=== PATIENT | male | born 1945 | race Caucasian/White ===

== ENCOUNTER 2018-08-24 05:24 | Inpatient (IN) | payer MEDICARE | END 2018-08-26 10:30 | disposition home or self-care (01) | LOC: PAS IN 05:24 → ORTHO 4S 11:40 | PROC: 0SRC0J9 Replacement of Right Knee Joint with Synthetic Substitute, Cemented, Open Approach (ICD-10-PCS; principal; 2018-08-24 07:23) | DX: M17.11 Unilateral primary osteoarthritis, right knee (principal); D62 Acute posthemorrhagic anemia ==

== ENCOUNTER 2019-04-19 05:20 | Inpatient (IN) | payer MEDICARE ==
[2019-04-06 15:18] LABS: BASOPHILS # (AUTO) 0.1 X10'3 (0-0.2); BASOPHILS % (AUTO) 1.1 % (0-1); EOSINOPHILS # (AUTO) 0.2 X10'3 (0-0.9); EOSINOPHILS % (AUTO) 3.3 % (0-6); LYMPHOCYTES # (AUTO) 1.7 X10'3 (1.1-4.8); LYMPHOCYTES % (AUTO) 25.9 % (21-51); MEAN CORPUSCULAR HEMOGLOBIN 29.2 PG (27.0-31.0); MEAN CORPUSCULAR HGB CONC 33.9 g/dL (33.0-36.5); MEAN CORPUSCULAR VOLUME 86.4 FL (78-98); MEAN PLATELET VOLUME 8.4 FL (7.4-10.4); MONOCYTES # (AUTO) 0.7 X10'3 (0-0.9); MONOCYTES % (AUTO) 10.3 % (2-12); NEUTROPHILS # (AUTO) 3.9 X10'3 (1.8-7.7); NEUTROPHILS % (AUTO) 59.4 % (42-75); PRE OP HEMATOCRIT 47.6 % (42.0-52.0); PRE OP HEMOGLOBIN 16.1 g/dL (14.0-17.9); PRE OP PLATELET COUNT 271 X10'3 (140-440); RED BLOOD COUNT 5.51 X10'6 (4.70-6.10); RED CELL DISTRIBUTION WIDTH 14.8 % (11.5-14.5)
[2019-04-06 15:30] LABS: ALBUMIN 3.5 G/DL (3.4-5.0); ALBUMIN/GLOBULIN RATIO 0.9 (1.1-1.5); ALKALINE PHOSPHATASE 58 IU/L (46-116); BLOOD UREA NITROGEN 13 MG/DL (7-18); BUN/CREATININE RATIO 12.3 (5.4-32.0); CALCIUM 8.9 MG/DL (8.5-10.1); CHLORIDE 107 MMOL/L (99-107); CREATININE 1.06 MG/DL (0.60-1.10); PRE OP ALT 26 U/L (30-65); PRE OP ANION GAP 5 (8-16); PRE OP AST 16 U/L (10-37); PRE OP BILIRUB, TOTAL 0.4 MG/DL (0.0-1.0); PRE OP GLUCOSE 100 MG/DL (70-104); PRE OP POTASSIUM 4.1 MMOL/L (3.4-5.1); PRE OP SODIUM 142 MMOL/L (135-145); TOTAL CARBON DIOXIDE 29.6 MMOL/L (24-32); TOTAL PROTEIN 7.6 G/DL (6.4-8.2); eGFR 69 ML/MIN
[2019-04-19] VITALS (19 sets, daily range): BP systolic 94–136; BP diastolic 54–85
[~2019-04-19] VITALS: Ht 177.8 cm; Wt 101.0 kg
[~2019-04-19 05:20] MED LIST: ASCO500C15 PO; CALC500T11 PO; CHOL10002 PO; FISH12002 PO; LACT1CAP65 PO; PRAS50CA2 PO; SILYMARIN PO; UBID100C16 PO; VITAMIN B PO; [UNRECOGNIZED DRUG - OTHER]; [UNRECOGNIZED DRUG - OTHER] PO; [UNRECOGNIZED DRUG - OTHER] PO; ringers solution, lacted 1,000 ML IV SCH
[2019-04-19] MEDS ORDERED: acetaminophen 325mg tablet PO ONE (05:30)
[2019-04-19] MEDS ORDERED: gabapentin 300mg capsule PO ONE (05:30)
[2019-04-19] MEDS ORDERED: oxyCODONE SR 10mg (sust. release) tab PO ONE (05:30)
[2019-04-19] MEDS ORDERED: famotidine 20mg tablet PO ONE (05:30)
[2019-04-19] MEDS ORDERED: vancomycin inj 1,500 MG in normal saline 300ml IV soln IV ONE (05:30)
[2019-04-19] MEDS ORDERED: metoclopramide 5 mg/ml inj IV ONE (05:30)
[2019-04-19] MEDS ORDERED: tranexamic acid inj. 1,000 MG in normal saline 100 ML IV ONE (05:30)
[2019-04-19] MEDS ORDERED: cefazolin/dext.iso 2gm/50ml 50 ML IV ONE (06:05)
[2019-04-19] MEDS ORDERED: LIDOcaine 1% (10mg/ml) 2ml vial ONE (06:10)
[2019-04-19] MEDS ORDERED: epiNEPHrine 1 mg/ml inj ONE (06:47)
[2019-04-19] MEDS ORDERED: mineral oil 10ml sterile, topical TP ONE (06:47)
[2019-04-19] MEDS ORDERED: ketorolac trometh. 30mg/ml inj. ONE (06:47)
[2019-04-19] MEDS ORDERED: vancomycin 1,000mg inj ONE (06:48)
[2019-04-19] MEDS ORDERED: ROPIVAcaine 0.5% (5mg/ml) 30ml vial ONE ×2 (06:48→10:20)
[2019-04-19] MEDS ORDERED: ceFAZolin 1000mg inj ONE (06:48)
[2019-04-19] MEDS ORDERED: morphine 10mg/ml inj. ONE (06:48)
[2019-04-19] MEDS ORDERED: tetracaine 1% (10mg/ml) pres. free inj. ONE (07:13)
[2019-04-19] MEDS ORDERED: fentaNYL/PF 50MCG/1 ML 2ML syringe ONE (07:16)
[2019-04-19] MEDS ORDERED: MIDAZolam 5mg/5ml vial ONE (07:17)
[2019-04-19] MEDS ORDERED: ringers solution, lacted 1,000 ML IV SCH (09:16)
[2019-04-19] MEDS ORDERED: ROPIVAcaine 0.2%/PF PAIN PUMP 550 ML IJ SCH (09:16)
[2019-04-19] MEDS ORDERED: proCHLORperazine 10 MG/2 ml inj IV PRN (09:20)
[2019-04-19] MEDS ORDERED: ondansetron/PF 4mg/2ml inj IV PRN ×2 (09:20→10:30)
[2019-04-19] MEDS ORDERED: morphine 4 MG/ML inj SYRINge IV PRN ×2 (09:20)
[2019-04-19] MEDS ORDERED: meperidine/PF 25mg/ml syringe IV PRN ×3 (09:20)
[2019-04-19] MEDS ORDERED: ePHEDrine 50MG/ML INJ. ONE (09:30)
[2019-04-19] MEDS ORDERED: propofol inj 20 ML IV ONE (09:30)
[2019-04-19] MEDS ORDERED: magnesium hydroxide 30ml (MOM) UD suspension PO PRN (10:30)
[2019-04-19] MEDS ORDERED: acetaminophen 325mg tablet PO PRN (10:30)
[2019-04-19] MEDS ORDERED: HYDROmorphone inj. 0.5 MG/0.5 ML DISP.SYRIN IV PRN (10:30)
[2019-04-19] MEDS ORDERED: diphenhydrAMINE 25mg capsule PO PRN ×2 (10:30)
[2019-04-19] MEDS ORDERED: bisacodyl 10mg suppository rectal RC PRN (10:30)
[2019-04-19] MEDS ORDERED: oxyCODONE IR 5mg (immed. release) tablet PO PRN (10:30)
[2019-04-19] MEDS ORDERED: HYDROmorphone 1 mg/ml syringe IV PRN (10:30)
--- NOTE | 2019-04-19 10:45 | NUR ---
Received from OR via BED , accompanied by Anesthesiologist DR MORA and report given by Anesthesiolgist. PATIENT WAKING UP, DENIES PAIN, V/S WNL, NEUROVASCULAR CHECKS INTACT, 18G PIV LUE , DRESSING TO LEFT KNEE CDI W/ COLD POWDER PACK AND W/ SCD ON. F/C DRAINING CLEAR YELLOW URINE. SENSATION T-11. ON QUE BALL TO LEFT KNEE
--- NOTE | 2019-04-19 11:45 | NUR ---
PATIENT A&OX4, DENIES PAIN, V/S WNL, NEUROVASCULAR CHECKS INTACT, 18G PIV LUE , FLORENCIO DRESSING TO LEFT KNEE CDI W/ COLD POWDER PACK AND W/ SCD ON AND ON QUE BALL AT 4ML/HR. F/C DRAINING CLEAR YELLOW URINE. SENSATION T-11. PATIENT TAKEN TO 4010B WITH ALL BELONGINGS AND HOOKED UP TO MONITORS IN ROOM AND REPORT GIVEN TO [employer] COMMUNICATIONS MANAGER WHO HAS TAKEN OVER PATIENT CARE.
[2019-04-19] MEDS ORDERED: NORMAL SALINE IV ONE (14:00)
[2019-04-19] MEDS ORDERED: TRANEXAMIC ACID IV ONE (14:00)
[2019-04-19] MEDS ORDERED: tranexamic acid inj. 1,000 MG in normal saline 100ml IV soln 100 ML IV ONE (14:30)
[2019-04-19] MEDS: potassium cl 20mEq in 1/2 NS 1,000 ML IV SCH ×2 (14:58→18:26)
[2019-04-19] MEDS: gabapentin 300mg capsule PO SCH ×2 (15:00→20:56)
[2019-04-19] MEDS: acetaminophen 325mg tablet PO SCH ×2 (15:06→20:55)
[2019-04-19] MEDS: ceFAZolin 1GM/D5W- ADD-VANTAGE 50 ML IV SCH (16:20)
--- NOTE | 2019-04-19 18:23 | NUR ---
Problems reprioritized. Patient report given, questions answered & plan of care reviewed with Ruapli RAMIREZ.
[2019-04-19] MEDS ORDERED: vancomycin/NS 1 GM ADD-VANTAGE 250 ML IV SCH (20:00)
[2019-04-19] MEDS: sennosides 8.6mg tablet PO SCH (20:57)
[2019-04-20] VITALS (8 sets, daily range): BP systolic 110–147; BP diastolic 71–78
[2019-04-20] MEDS: ceFAZolin 1GM/D5W- ADD-VANTAGE 50 ML IV SCH (00:56)
[2019-04-20] MEDS: potassium cl 20mEq in 1/2 NS 1,000 ML IV SCH (01:00)
[2019-04-20] MEDS: acetaminophen 325mg tablet PO SCH ×5 (02:00→20:52)
[2019-04-20 05:55] LABS: BASOPHILS # (AUTO) 0.1 X10'3 (0-0.2); BASOPHILS % (AUTO) 0.6 % (0-1); EOSINOPHILS # (AUTO) 0.2 X10'3 (0-0.9); EOSINOPHILS % (AUTO) 1.8 % (0-6); HEMATOCRIT 43.5 % (42.0-52.0); HEMOGLOBIN 14.8 g/dl (14.0-17.9); LYMPHOCYTES # (AUTO) 0.9 X10'3 (1.1-4.8); LYMPHOCYTES % (AUTO) 10.5 % (21-51); MEAN CORPUSCULAR HEMOGLOBIN 29.3 PG (27.0-31.0); MEAN CORPUSCULAR VOLUME 86.2 FL (78-98); MEAN PLATELET VOLUME 8.4 FL (7.4-10.4); MONOCYTES # (AUTO) 0.9 X10'3 (0-0.9); NEUTROPHILS # (AUTO) 6.5 X10'3 (1.8-7.7); NEUTROPHILS % (AUTO) 77.1 % (42-75); PLATELET COUNT 221 X10'3 (140-440); RED BLOOD COUNT 5.04 X10'6 (4.70-6.10); RED CELL DISTRIBUTION WIDTH 14.7 % (11.5-14.5); WHITE BLOOD COUNT 8.5 X10'3 (4.5-11.0)
[2019-04-20 05:56] LABS: ANION GAP 7 (8-16); CHLORIDE 108 MMOL/L (99-107); POTASSIUM 4.6 MMOL/L (3.5-5.1); SODIUM 143 MMOL/L (135-145); TOTAL CARBON DIOXIDE 28.5 MMOL/L (24-32)
[2019-04-20] MEDS ORDERED: ENOX30DI4 SQ (06:38)
[2019-04-20] MEDS ORDERED: SILYMARIN PO SCH (08:00)
[2019-04-20] MEDS ORDERED: INTLU PO SCH (08:00)
[2019-04-20] MEDS ORDERED: non-formulary drug (Ubidecarenone (Coq-10) 100 MG) PO SCH (08:00)
[2019-04-20] MEDS ORDERED: PRASTERONE PO SCH (08:00)
[2019-04-20] MEDS ORDERED: [UNRECOGNIZED DRUG - OTHER] PO SCH (08:00)
[2019-04-20] MEDS: enoxaparin 30mg/0.3ml syringe SQ SCH (08:32)
[2019-04-20] MEDS: lactobacillus rhamnosus 10,000 MMU CELLS/CAPSULE PO SCH (08:32)
[2019-04-20] MEDS: vitamin D (cholecalciferol) 1,000 unit tablet PO SCH (08:33)
[2019-04-20] MEDS: gabapentin 300mg capsule PO SCH ×3 (08:33→20:52)
[2019-04-20] MEDS: vitamin B comp w/Vit. C tab 1 TAB TABLET PO SCH (08:34)
[2019-04-20] MEDS: calcium carbonate 500mg tablet PO SCH (08:34)
--- NOTE | 2019-04-20 09:30 | NUR ---
Pt report given to Shelly RAMIREZ
--- NOTE | 2019-04-20 09:43 | NUR ---
Patient in room [facility]TH[facility] 4010. I have received report from Scot Dave and had the opportunity to ask questions and assume patient care.
--- NOTE | 2019-04-20 12:37 | NUR ---
Joint Replacement Consult: Pt/SO seen by AMANDA for written/verbal diet ed w/ RD contact information provided. Pt PO 100% regular diet meeting needs and declines additional proteins at this time. LBM 04/18 on senna. Will continue to monitor. Addendum: 04/20/19 at [address] Amended: Links added.
--- NOTE | 2019-04-20 17:49 | NUR ---
Student documentation: I have reviewed and agree with all interventions, assessments performed and documented by NICOL Napier COS.
[2019-04-20] MEDS: oxyCODONE IR 5mg (immed. release) tablet PO PRN (18:44)
[2019-04-20] MEDS: celeCOXIB 100mg capsule PO SCH (20:51)
[2019-04-20] MEDS: sennosides 8.6mg tablet PO SCH (20:52)
[2019-04-21] MEDS: acetaminophen 325mg tablet PO SCH ×2 (02:00→07:47)
[2019-04-21 06:00] VITALS: BP 129/91
[2019-04-21] MEDS: oxyCODONE IR 5mg (immed. release) tablet PO PRN (06:53)
[2019-04-21 07:15] LABS: BASOPHILS % (AUTO) 0.4 % (0-1); EOSINOPHILS # (AUTO) 0.2 X10'3 (0-0.9); EOSINOPHILS % (AUTO) 1.8 % (0-6); HEMATOCRIT 42.6 % (42.0-52.0); HEMOGLOBIN 14.4 g/dl (14.0-17.9); LYMPHOCYTES # (AUTO) 1.2 X10'3 (1.1-4.8); LYMPHOCYTES % (AUTO) 12.6 % (21-51); MEAN CORPUSCULAR HEMOGLOBIN 29.3 PG (27.0-31.0); MEAN CORPUSCULAR HGB CONC 33.7 g/dL (33.0-36.5); MEAN PLATELET VOLUME 8.5 FL (7.4-10.4); MONOCYTES # (AUTO) 1.3 X10'3 (0-0.9); MONOCYTES % (AUTO) 13.9 % (2-12); NEUTROPHILS # (AUTO) 6.9 X10'3 (1.8-7.7); NEUTROPHILS % (AUTO) 71.3 % (42-75); PLATELET COUNT 214 X10'3 (140-440); RED CELL DISTRIBUTION WIDTH 15.1 % (11.5-14.5); WHITE BLOOD COUNT 9.7 X10'3 (4.5-11.0)
[2019-04-21] MEDS: vitamin D (cholecalciferol) 1,000 unit tablet PO SCH (07:45)
[2019-04-21] MEDS: calcium carbonate 500mg tablet PO SCH (07:45)
[2019-04-21] MEDS: gabapentin 300mg capsule PO SCH (07:46)
[2019-04-21] MEDS: vitamin B comp w/Vit. C tab 1 TAB TABLET PO SCH (07:46)
[2019-04-21] MEDS: celeCOXIB 100mg capsule PO SCH (07:46)
[2019-04-21] MEDS: enoxaparin 30mg/0.3ml syringe SQ SCH (07:46)
[2019-04-21] MEDS: lactobacillus rhamnosus 10,000 MMU CELLS/CAPSULE PO SCH (07:46)
[2019-04-21 10:00] VITALS: BP 103/71
[2019-04-21] MEDS ORDERED: acetaminophen 325mg tablet PO PRN (10:30)
--- NOTE | 2019-04-21 16:52 | NUR ---
Student Medication Administration: For this medication-pass time frame, all medication were reviewed, dispensed, administered and documented per hospital policy by Jolie RAMIREZ . Student documentation: I have reviewed and agree with all interventions, assessments performed and documented by Jolie RAMIREZ.
== END 2019-04-21 10:49 | disposition home health service (06) | DRG 470 ==
LOC: PAS IN 05:20 → EDSTATUS 07:30 → ORTHO 4S 11:45
PROVIDERS: ADMIT Orthopaedic Surgery; ATTEND Orthopaedic Surgery
PROC: 3E0T3BZ Introduction of Anesthetic Agent into Peripheral Nerves and Plexi, Percutaneous Approach (ICD-10-PCS; 2019-04-19)
PROC: 8E0Y0CZ Robotic Assisted Procedure of Lower Extremity, Open Approach (ICD-10-PCS; 2019-04-19)
PROC: 0SRD069 Replacement of Left Knee Joint with Oxidized Zirconium on Polyethylene Synthetic Substitute, Cemented, Open Approach (ICD-10-PCS; principal; 2019-04-19 07:46)
DX: M17.12 Unilateral primary osteoarthritis, left knee (principal); Z96.651 Presence of right artificial knee joint; Z87.891 Personal history of nicotine dependence; Z79.899 Other long term (current) drug therapy
CPT/HCPCS: 36415; 80051; 80053; 82948; 85025; 87081; 97110; 97116; 97161; 97530; A4215; A6454; A7000; C1713; C1758; C1776; C9250; G0378; J0171; J0690; J1170; J1650; J1885; J2001; J2250; J2270; J2704; J2765; J2795; J3010; J3370; J3480; J7120

== ENCOUNTER 2024-04-26 09:51 | Day surgery (SDC) | payer MEDICARE ==
[2024-04-19 11:28] LABS: BASOPHILS # (AUTO) 0.1 X10'3 (0-0.2); EOSINOPHILS # (AUTO) 0.2 X10'3 (0-0.9); EOSINOPHILS % (AUTO) 2.7 % (0-6); LYMPHOCYTES # (AUTO) 1.8 X10'3 (1.1-4.8); LYMPHOCYTES % (AUTO) 21.4 % (21-51); MEAN CORPUSCULAR HEMOGLOBIN 29.4 PG (27.0-31.0); MEAN CORPUSCULAR HGB CONC 33.1 g/dL (33.0-36.5); MEAN CORPUSCULAR VOLUME 88.9 FL (78-98); MEAN PLATELET VOLUME 7.8 FL (7.4-10.4); MONOCYTES # (AUTO) 0.7 X10'3 (0-0.9); MONOCYTES % (AUTO) 8.8 % (2-12); NEUTROPHILS # (AUTO) 5.5 X10'3 (1.8-7.7); NEUTROPHILS % (AUTO) 66.1 % (42-75); PRE OP HEMATOCRIT 50.4 % (42.0-52.0); PRE OP HEMOGLOBIN 16.7 g/dL (14.0-17.9); PRE OP PLATELET COUNT 264 X10'3 (140-440); PRE OP WHITE BLOOD COUNT 8.3 10'3 (4.8-10.8); RED BLOOD COUNT 5.66 X10'6 (4.70-6.10); RED CELL DISTRIBUTION WIDTH 14.5 % (11.5-14.5)
[2024-04-19 11:49] LABS: ALBUMIN 3.6 G/DL (3.4-5.0); ALBUMIN/GLOBULIN RATIO 0.9 (1.1-1.5); ALKALINE PHOSPHATASE 54 IU/L (46-116); BLOOD UREA NITROGEN 16 MG/DL (7-18); BUN/CREATININE RATIO 15.5 (10.0-20.0); CALCIUM 9.2 MG/DL (8.5-10.1); CHLORIDE 101 MMOL/L (99-107); CREATININE 1.03 MG/DL (0.60-1.10); PRE OP ALT 29 U/L (30-65); PRE OP ANION GAP 3 (8-16); PRE OP AST 24 U/L (10-37); PRE OP BILIRUB, TOTAL 0.5 MG/DL (0.0-1.0); PRE OP GLUCOSE 97 MG/DL (70-104); PRE OP SODIUM 136 MMOL/L (135-145); THYROID STIMULATING HORMONE 1.77 ulU/ml (0.34-4.50); TOTAL CARBON DIOXIDE 32.5 MMOL/L (24-32); TOTAL PROTEIN 7.6 G/DL (6.4-8.2); eGFR 70 ML/MIN
[2024-04-26] VITALS (25 sets, daily range): BP systolic 78–164; BP diastolic 47–97; PULSE 49–97; RESP 16–32; TEMP 97.6–97.9; O2SAT 92–99
[~2024-04-26] VITALS: Ht 177.8 cm; Wt 106.1 kg
[2024-04-26] MEDS: tranexamic acid inj. 1,000 MG in normal saline IV soln 100ML IV ONE (05:30)
[2024-04-26] MEDS: ceFAZolin 2gm in dextrose, iso 50 ML IV ONE (05:30)
[~2024-04-26 09:51] MED LIST changes: -ASCO500C15 PO; -CALC500T11 PO; -CHOL10002 PO; -FISH12002 PO; -LACT1CAP65 PO; +LEVO100C4 PO; -PRAS50CA2 PO; -SILYMARIN PO; -UBID100C16 PO; -VITAMIN B PO; -[UNRECOGNIZED DRUG - OTHER]; -[UNRECOGNIZED DRUG - OTHER] PO; -[UNRECOGNIZED DRUG - OTHER] PO; -ringers solution, lacted 1,000 ML IV SCH
[2024-04-26] MEDS: famotidine 20mg tablet PO ONE (10:15)
[2024-04-26] MEDS: vancomycin 1,500 MG in NS 300ml IV soln IV ONE (10:17)
[2024-04-26] MEDS: ringers solution, lacted 1,000 ML IV SCH ×2 (10:17→16:28)
[2024-04-26] MEDS ORDERED: vancomycin 1,000mg inj ONE (10:53)
[2024-04-26] MEDS ORDERED: sevoflurane 250ml liquid IH ONE (12:07)
[2024-04-26] MEDS ORDERED: fentaNYL/PF 50MCG/1 ML 2ML syringe ONE (12:15)
[2024-04-26] MEDS ORDERED: MIDAZolam 1 MG/ML 5ML VIAL ONE (12:15)
[2024-04-26] MEDS ORDERED: dexamethasone sod phosphate 4mg/ml inj. ONE (13:08)
[2024-04-26] MEDS ORDERED: ROPIVAcaine 0.5% (5mg/ml) 30ml vial ONE (13:08)
[2024-04-26] MEDS ORDERED: rocuronium 10mg/ml inj IV ONE (13:08)
[2024-04-26] MEDS ORDERED: meperidine/PF 25mg/ml syringe IV PRN ×2 (14:55)
[2024-04-26] MEDS ORDERED: ondansetron/PF 4mg/2ml inj IV PRN ×2 (14:55→16:10)
[2024-04-26] MEDS ORDERED: morphine 2 MG/ML inj. syringe IV PRN (14:55)
[2024-04-26] MEDS ORDERED: ROPIVAcaine 0.2% (10 MG/5 ML) BOLUS INJECTION INTERSCALE PRN (14:55)
[2024-04-26] MEDS ORDERED: proCHLORperazine 10 MG/2 ml inj IV PRN (14:55)
[2024-04-26] MEDS ORDERED: morphine 4 MG/ML inj SYRINge IV PRN (14:55)
[2024-04-26] MEDS ORDERED: labetalol 20mg/4ml (5mg/ml) syringe IV PRN (14:55)
[2024-04-26] MEDS ORDERED: enalaprilat dihydrate 2.5mg/2ml vial IV PRN (14:55)
[2024-04-26] MEDS ORDERED: propofol inj 20 ML IV ONE (15:50)
[2024-04-26] MEDS ORDERED: ondansetron/PF 4mg/2ml inj ONE (15:57)
[2024-04-26] MEDS ORDERED: diphenhydrAMINE 25mg capsule PO PRN ×2 (16:10)
[2024-04-26] MEDS ORDERED: magnesium hydroxide 30ml (MOM) UD suspension PO PRN (16:10)
[2024-04-26] MEDS ORDERED: HYDROmorphone inj. 0.5 MG/0.5 ML DISP.SYRIN IV PRN (16:10)
[2024-04-26] MEDS ORDERED: acetaminophen 325mg tablet PO PRN (16:10)
[2024-04-26] MEDS ORDERED: HYDROmorphone 1 mg/ml syringe IV PRN (16:10)
[2024-04-26] MEDS ORDERED: naloxone 0.4 mg/ml inj IV PRN (16:10)
[2024-04-26] MEDS ORDERED: oxyCODONE IR 5mg (immed. release) tablet PO PRN ×2 (16:10)
[2024-04-26] MEDS ORDERED: bisacodyl 10mg suppository rectal RC PRN (16:10)
[2024-04-26] MEDS: ROPIVAcaine 0.2%/PF PUMP/bolus 545 ML INTERSCALE SCH (16:27)
[2024-04-26] MEDS: meperidine/PF 25mg/ml syringe IV PRN (16:52)
[2024-04-26] MEDS: NORMAL SALINE IV ONE (19:37)
[2024-04-26] MEDS: TRANEXAMIC ACID IV ONE (19:37)
[2024-04-26] MEDS: levoTHYROXINE 100mcg tablet PO SCH (21:34)
[2024-04-26] MEDS: gabapentin 300mg capsule PO SCH (21:35)
[2024-04-26] MEDS: acetaminophen 325mg tablet PO SCH (21:35)
[2024-04-26] MEDS: sennosides 8.6mg tablet PO SCH (21:35)
[2024-04-26] MEDS: VANCOMYCIN 1GM 200ML H20 (PEG) 200 ML IV SCH (22:22)
[2024-04-27] MEDS: ceFAZolin/D5W- 1GM premix 50 ML IV SCH (00:28)
[2024-04-27 02:00] VITALS: BP 107/73; PULSE 105; RESP 18; TEMP 98; O2SAT 94
[2024-04-27 06:00] VITALS: BP 112/82; PULSE 106; RESP 18; TEMP 98.3; O2SAT 95
[2024-04-27 06:24] LABS: ANION GAP 8 (8-16); CHLORIDE 105 MMOL/L (99-107); POTASSIUM 4.3 MMOL/L (3.5-5.1); SODIUM 138 MMOL/L (135-145); TOTAL CARBON DIOXIDE 25.1 MMOL/L (24-32)
[2024-04-27 06:26] LABS: BASOPHILS % (AUTO) 0.1 % (0-1); EOSINOPHILS % (AUTO) 0 % (0-6); HEMATOCRIT 45.5 % (42.0-52.0); HEMOGLOBIN 15.2 g/dl (14.0-17.9); LYMPHOCYTES # (AUTO) 0.9 X10'3 (1.1-4.8); LYMPHOCYTES % (AUTO) 6.7 % (21-51); MEAN CORPUSCULAR HEMOGLOBIN 29.7 PG (27.0-31.0); MEAN CORPUSCULAR HGB CONC 33.5 g/dL (33.0-36.5); MEAN CORPUSCULAR VOLUME 88.9 FL (78-98); MEAN PLATELET VOLUME 8.7 FL (7.4-10.4); MONOCYTES % (AUTO) 7.1 % (2-12); NEUTROPHILS # (AUTO) 11.7 X10'3 (1.8-7.7); NEUTROPHILS % (AUTO) 86.1 % (42-75); PLATELET COUNT 258 X10'3 (140-440); RED BLOOD COUNT 5.12 X10'6 (4.70-6.10); RED CELL DISTRIBUTION WIDTH 14.6 % (11.5-14.5); WHITE BLOOD COUNT 13.6 X10'3 (4.5-11.0)
[2024-04-27] MEDS: aspirin 325mg tablet PO SCH (07:45)
[2024-04-27 10:00] VITALS: BP 116/69; PULSE 80; RESP 20; TEMP 98.1; O2SAT 94
[2024-04-27 13:29] VITALS: RESP 18; O2SAT 94
[2024-04-27] MEDS ORDERED: celeCOXIB 100mg capsule PO SCH (20:00)
[2024-04-27] MEDS ORDERED: iohexol 350MG/ML 100ml bottle IV ONE (23:34)
[2024-04-28] MEDS ORDERED: AZIT-164 PO (01:37)
[2024-04-28] MEDS ORDERED: AMOX-419 PO (01:37)
[2024-04-28] MEDS ORDERED: acetaminophen 325mg tablet PO PRN (16:10)
== END 2024-04-27 16:00 | disposition home or self-care (01) ==
LOC: PAS IN 09:51 → UNDOADMIN 09:51 → PAS 09:51 → EDSTATUS 12:00 → ORTHO 4S 17:50 → PAS IN 17:50 → ORTHO 4S 17:50 → PAS 04-27 16:00
PROVIDERS: ATTEND Orthopaedic Surgery
DX: M19.011 Primary osteoarthritis, right shoulder (principal); G89.18 Other acute postprocedural pain; E03.9 Hypothyroidism, unspecified; E66.9 Obesity, unspecified; I25.2 Old myocardial infarction; Z87.891 Personal history of nicotine dependence; Z79.890 Hormone replacement therapy; Z96.653 Presence of artificial knee joint, bilateral; Z98.41 Cataract extraction status, right eye; Z98.42 Cataract extraction status, left eye; Z98.890 Other specified postprocedural states; Z68.33 Body mass index [BMI] 33.0-33.9, adult
CPT/HCPCS: 23472; 36415; 64415; 73020; 80051; 80053; 82948; 84443; 85025; 87081; 97110; 97116; 97161; 97530; A4565; A4615; A4618; A6253; A6258; A6402; A7000; C1713; C1776; J0690; J1100; J2001; J2175; J2250; J2405; J2704; J2795; J3010; J3370; J3372; J3490; J7030; J7040; J7120; Q9967; Z7506; Z7508; Z7512; Z7610; A6449; G0378